=== PATIENT | male | born 1980 | race Caucasian/White ===

== ENCOUNTER 2022-05-08 19:06 | Emergency (ER) | payer OTHER ==
[~2022-05-08] VITALS: Ht 190.5 cm; Wt 119.3 kg
[2022-05-08] MEDS ORDERED: KETOROLAC TROMETH 60MG/2ML VIAL IM ONE (20:15)
[2022-05-08] MEDS ORDERED: IBUP800T27 PO (20:17)
[2022-05-08 21:30] VITALS: BP 132/77
== END 2022-05-08 22:36 | disposition home or self-care (01) ==
LOC: ER 19:06
DX: M54.6 Pain in thoracic spine (principal)
CPT/HCPCS: 96372; 99283; J1885

== ENCOUNTER 2022-07-30 12:07 | Emergency (ER) | payer OTHER ==
[~2022-07-30] VITALS: Ht 190.5 cm; Wt 120.0 kg
[~2022-07-30 12:07] MED LIST: IBUP800T27 PO
[2022-07-30 14:19] VITALS: BP 123/78
[2022-07-30] MEDS ORDERED: CIP03OS RIGHTEYE (16:30)
== END 2022-07-30 17:22 | disposition home or self-care (01) ==
LOC: ER 12:07
DX: S05.01XA Injury of conjunctiva and corneal abrasion without foreign body, right eye, initial encounter (principal); Z79.1 Long term (current) use of non-steroidal anti-inflammatories (NSAID); Z79.2 Long term (current) use of antibiotics; Z88.5 Allergy status to narcotic agent; X58.XXXA Exposure to other specified factors, initial encounter; Y93.89 Activity, other specified; Y92.89 Other specified places as the place of occurrence of the external cause; Y99.8 Other external cause status
CPT/HCPCS: 65205